=== PATIENT | male | born 1990 | race Caucasian/White ===

== ENCOUNTER 2017-01-03 16:55 | Emergency (ER) | payer OTHER ==
[~2017-01-03 16:55] MED LIST: BENTYL 10 MG CA10 MG PO; CYMBALTA 20 MG20 MG PO; DEXILANT60 M1 PO; DILAUDID2 MG PO; DOXYCYCLINE HY100 M2 PO; DULOXETINE20 MG PO; Domperidone PO; ERYTHROMYCIN250 M1 PO; GABAPENTIN800 MG PO; GOLYTELY 40004000 ML PO; LANTUS SOLOS100 U/ML SC; LEVSIN0.125 MG PO; LO-DOSE ASPIRIN81 MG PO; NEURONTIN800 M2 PO; NOVOLOG 10300 UNITS/ SC; NOVOLOG100 UNIT/2 SC; PHENERGAN25 M1 PO; PHENERGAN25 MG PR; PROMETHAZINE HC25 M3 PO; PROMETHAZINE25 MG PR; REGLAN10 M1 PO; REGLAN10 MG PO; TRESIBA FL200 UNIT/1 SC; ZOFRAN ODT4 M1 SL; ZOFRAN ODT4 MG PO; ZOFRAN ODT4 MG SL; phenergan PO
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
[2017-01-03] MEDS ORDERED: AMITRIPTYLINE H25 M2 PO (18:28)
[2017-01-03 18:52] LABS: ABSOLUTE BASOPHIL COUNT 0.1 /CUMM (0.0-0.2); ABSOLUTE EOSINOPHIL COUNT 0 /CUMM (0.0-0.7); ABSOLUTE GRANULOCYTE CT 17.3 /CUMM (1.4-6.5); ABSOLUTE LYMPH COUNT 0.8 /CUMM (1.2-3.4); ABSOLUTE MONOCYTE COUNT 0.6 /CUMM (0.10-0.60); BASOPHIL % 0.4 % (0.0-2.0); EOSINOPHIL % 0.1 % (0-5); MEAN CORPUSCULAR HGB 28.5 PG (27.0-31.0); MEAN CORPUSCULAR HGB CONC 32.7 G/DL (33.0-37.0); MEAN CORPUSCULAR VOLUME 87.1 FL (80.0-94.0); MEAN PLATELET VOLUME 9.8 FL (7.4-10.4); PLATELET COUNT 273 /CUMM (130-400); RED BLOOD CELL CT 4.94 /CUMM (4.70-6.10); WHITE BLOOD CELL COUNT 18.8 /CUMM (4.8-10.8)
[2017-01-03 19:08] LABS: GRANULOCYTE % 91.8 % (42.2-75.2)
--- NOTE | 2017-01-03 23:46 | CT SCAN REPORT ---
EXAMINATION: CT ABDOMEN AND PELVIS WITH CONTRAST CLINICAL INFORMATION: Abdominal pain, nausea and vomiting. History of gastroparesis. COMPARISON: Multiple prior CTs of the abdomen and pelvis dating back to 01/19/2015, with the most recent study performed on 08/12/2016. TECHNIQUE: Multidetector volumetric imaging was performed of the abdomen and pelvis before and after the IV administration of 95 mL of Optiray 320 intravenous contrast. Sagittal and coronal reformatted images were obtained on the technologist's workstation. DLP: 334 mGy-cm FINDINGS: LUNG BASES: The visualized lung bases are unremarkable. LIVER, GALLBLADDER, AND BILIARY TREE: The liver is normal in size, shape, and attenuation. No focal hepatic lesion or biliary ductal dilatation is present. The gallbladder is surgically absent. PANCREAS: Unremarkable. SPLEEN: Unremarkable. ADRENAL GLANDS: Unremarkable. KIDNEYS AND URETERS: The kidneys are normal in size and enhance homogeneously, without focal lesions. There is no appreciable nephrolithiasis or hydroureteronephrosis of either kidney or renal collecting system. No ureteral stones are identified. BLADDER: Unremarkable. GASTROINTESTINAL TRACT: Normal anatomic orientation of the stomach relative to the duodenum. Normal caliber of abdominal and pelvic bowel loops, without evidence of obstruction or ileus. No circumferential bowel wall thickening with surrounding inflammatory changes to suggest an underlying infectious or inflammatory enterocolitis. Normal-appearing appendix within the right lower quadrant of the abdomen. No organizing intra-abdominal fluid collections or free intraperitoneal air. ABDOMINAL WALL: No significant hernia is appreciated. LYMPH NODES: No significant abdominal or pelvic adenopathy. VASCULAR: Patent abdominal vasculature. Normal course and caliber of the abdominal aorta and its branching vessels, without aneurysmal dilatation. PELVIC VISCERA: Unremarkable. OSSEOUS STRUCTURES: No acute osseous abnormality. Normal alignment of the imaged thoracolumbar spine. IMPRESSION: No acute findings within the abdomen or pelvis to explain patient symptomatology.
[2017-01-04] MEDS ORDERED: PROMETHAZINE HC25 M3 PO (00:58)
[2017-01-04] MEDS ORDERED: REGLAN10 M1 PO (00:58)
[2017-01-04 01:05] VITALS: BP 138/82
== END 2017-01-04 01:05 ==
LOC: ERH 16:55
PROVIDERS: Physician Assistant
DX: G43.A0 Cyclical vomiting, in migraine, not intractable (principal)
CPT/HCPCS: 74177; 96361; 96374; 96375; J2405; J2550; J2765

== ENCOUNTER 2017-03-10 21:01 | Emergency (ER) | payer OTHER ==
[~2017-03-10] VITALS: Ht 177.8 cm; Wt 65.8 kg
[~2017-03-10 21:01] MED LIST changes: +AMITRIPTYLINE H25 M2 PO
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
[2017-03-10 22:04] LABS: ABSOLUTE BASOPHIL COUNT 0.1 /CUMM (0.0-0.2); ABSOLUTE EOSINOPHIL COUNT 0.2 /CUMM (0.0-0.7); ABSOLUTE GRANULOCYTE CT 7.7 /CUMM (1.4-6.5); ABSOLUTE MONOCYTE COUNT 0.5 /CUMM (0.10-0.60); BASOPHIL % 0.7 % (0.0-2.0); EOSINOPHIL % 1.4 % (0-5); HEMATOCRIT 48.3 % (42-52); MEAN CORPUSCULAR HGB 28.5 PG (27.0-31.0); MEAN CORPUSCULAR HGB CONC 32.8 G/DL (33.0-37.0); MEAN PLATELET VOLUME 10.4 FL (7.4-10.4); PLATELET COUNT 292 /CUMM (130-400); RBC DISTRIBUTION WIDTH 13.5 % (11.5-14.5); RED BLOOD CELL CT 5.55 /CUMM (4.70-6.10); WHITE BLOOD CELL COUNT 12.5 /CUMM (4.8-10.8)
--- NOTE | 2017-03-10 22:41 | RADIOLOGY REPORT ---
EXAMINATION: XR ABDOMEN CLINICAL INDICATION: Abdominal pain, nausea and vomiting COMPARISON: CT of the abdomen and pelvis from 01/03/2017 TECHNIQUE: Supine and upright views of the abdomen. FINDINGS: The bowel gas pattern is nonobstructive. Scattered small amounts of air and stool are seen within portions of the colon. There is some air within a nondistended stomach. There clips in the right and left upper quadrants. The osseous structures demonstrate a minor levoconvex scoliosis. IMPRESSION: Nonobstructive bowel gas pattern.
[2017-03-11] MEDS ORDERED: PERCOCET 5-3251 EACH PO (00:34)
[2017-03-11] MEDS ORDERED: ZOFRAN ODT4 M1 SL (00:34)
[2017-03-11 06:43] VITALS: BP 142/84
== END 2017-03-11 07:00 ==
LOC: ERH 21:01
PROVIDERS: Physician Assistant Medical
DX: R11.2 Nausea with vomiting, unspecified (principal); R19.7 Diarrhea, unspecified; E11.9 Type 2 diabetes mellitus without complications; Z79.4 Long term (current) use of insulin
CPT/HCPCS: 74000; 96361; 96374; 96375; 96376; J0131; J2405; J2765; J3360